=== PATIENT | female | born 1960 | race Caucasian/White ===

== ENCOUNTER → 2018-05-15 | Outpatient (CLI) | payer OTHER ==
[~2018-05-15] MED LIST: MICROGESTIN; TIMO5DRO17
--- NOTE | 2018-05-15 19:51 | Diagnostic Imaging Report ---
EXAMINATION: Digital mammogram bilateral screening with 3D tomosynthesis. The current study was also evaluated with a Computer Aided Detection (CAD) system. INDICATION: Screening. This study was compared to the prior exam of 08/12/2011. At this time, there are no current complaints. FINDINGS: The breasts are predominantly fatty. When compared to the previous study, there does not appear to have been any significant change. There are few small benign-appearing nodular densities in both breasts. There is no primary or secondary sign of malignancy noted. 3D tomographic images fail to show any sign of malignancy. IMPRESSION: 1. There is no evidence for malignancy. 2. The patient should have her annual bilateral screening mammogram on schedule in April 2019. ACR BI-RADS Category 1: Negative. Result letter will be mailed to the patient. Note: At least 10% of breast cancer is not imaged by mammography. Dictated by: Dictated on workstation # [id number]
== END ==
LOC: RAD 12:58
PROVIDERS: ATTEND Nurse Practitioner
DX: Z12.31 Encounter for screening mammogram for malignant neoplasm of breast (principal)
CPT/HCPCS: 77067

== ENCOUNTER → 2021-07-08 | Outpatient (CLI) | payer BC ==
--- NOTE | 2021-07-08 14:19 | Diagnostic Imaging Report ---
INDICATION: Routine screening. CORRELATION is made with prior mammogram 05/15/2018. 2-D and 3-D bilateral screening mammography was performed with CAD. Scattered fibroglandular densities are identified bilaterally. There are benign nodules in both breasts. No spiculated mass or malignant-appearing microcalcifications are seen. Axillae are unremarkable. IMPRESSION: BI-RADS Category 2. No mammographic features suspicious for malignancy are identified. ACR BI-RADS Category 2: Benign findings. Result letter will be mailed to the patient. Note: At least 10% of breast cancer is not imaged by mammography. Dictated by: Dictated on workstation # [id number]
== END ==
LOC: RAD 11:30
PROVIDERS: ATTEND Internal Medicine
DX: Z12.31 Encounter for screening mammogram for malignant neoplasm of breast (principal)
CPT/HCPCS: 77063; 77067

== ENCOUNTER 2023-01-18 05:35 | Outpatient (CLI) | payer BC ==
[~2023-01-18] VITALS: Ht 170.2 cm; Wt 101.6 kg
[2023-01-23] MEDS ORDERED: CETI10TA17 PO (11:31)
[2023-01-23] MEDS ORDERED: IBUP-1779 PO (11:31)
== END 2023-01-23 11:36 | disposition home or self-care (01) ==
LOC: PREOP 05:35
PROVIDERS: ATTEND Internal Medicine
DX: Z01.818 Encounter for other preprocedural examination (principal)

== ENCOUNTER 2023-01-27 08:54 | Day surgery (SDC) | payer BC ==
--- NOTE | 2023-01-14 04:36 | HISTORY AND PHYSICAL ---
COLONOSCOPY HISTORY AND PHYSICAL HISTORY OF PRESENT ILLNESS: The patient is a 62-year-old white female seen for yearly wellness evaluation. She had not previously accomplished screening colonoscopy after discussion about the rationale. This is being set up. She has had past history of obstructive sleep apnea for which she reports compliance on CPAP therapy. She is deemed to be of average risk because she is not aware of any family history for GI tract malignancy. She denies bright red blood per rectum or melena. SOCIAL HISTORY: She is , with adult children. Occasional social alcohol intake. A [id number] smoking history ongoing. PHYSICAL EXAMINATION: GENERAL: Reveals a white female, appeared to be in no acute distress. VITAL SIGNS: Weight was up 7.6 pounds at 224, blood pressure 138/82. HEENT: Unremarkable. CHEST: Clear. CARDIOVASCULAR: Reveals regular rate and rhythm without murmur, S3, or S4. ABDOMEN: Soft, supple without mass, organomegaly, or tenderness. SKIN: Revealed no suspicious nevi. EXTREMITIES: Revealed no cyanosis, clubbing or edema. ASSESSMENT AND PLAN: 1. Stable wellness evaluation. The patient in the precontemplative stage in regards to consideration for tobacco cessation, not ready to make any changes. When she returns, we will discuss screening PFTs. I am going to get this set up. 2. Obstructive sleep apnea, doing well on CPAP. Continue. 3. The patient is being set up for her first screening colonoscopy deemed to be of average risk. Prep instructions were given and questions were answered. She was also set up for screening mammography. Blood tests were discussed with the patient. She had a normal chemistry panel, and reasonable lipid parameters. Her HDL is a little low, likely due to tobaccoism of 41, but LDL was 107 with a total cholesterol 171 and triglyceride level of 114. Job ID: [id number] DocumentID: [id number] Dictated Date: 01/04/2023 16:57:28 Mask Inspector Date: 01/04/2023 17:08:00 Dictated By: BLADIMIR ALONSO MD
[~2023-01-27] VITALS: Ht 170 cm; Wt 101.6 kg
[~2023-01-27 08:54] MED LIST changes: +CETI10TA17 PO; +IBUP-1779 PO
[2023-01-27] MEDS ORDERED: LACTATED RINGERS 1,000 ML 1,000 ML IV ONE (08:56)
[2023-01-27] MEDS ORDERED: LACTATED RINGERS 1,000 ML 1,000 ML IV STA (09:04)
[2023-01-27 09:15] VITALS: BP 111/53
--- NOTE | 2023-01-27 09:27 | Pre-Op Note & Conscious Sedat ---
Pre-Operative Progress Note Date H&P Reviewed: Jan 27, 2023 Time H&P Reviewed: 09:26 History & Physical: H&P Reviewed, Patient Examed, No changes noted Pre-Op Diagnosis: screening Moderate Sedation PreProcedure ASA Score 3 Airway Lungs Heart ASA score ASA 1: a normal healthy patient ASA 2: a patient with a mild systemic disease (mid diabetes, controlled hypertension, obesity ASA 3: a patient with a severe systemic disease that limits activity (angina, COPD, prior Myocardial infarction) ASA 4: a patient with an incapacitating disease that is a constant threat to life (CHF, renal failure) ASA 5: a moribund patient not expected to survive 24 hrs. (ruptured aneurysm) ASA 6: a declared brain- patient whose organs are being harvested. For emergent operations, add the letter E after the classification Mallampati Classification Grade 3 Sedation Plan Analgesia, Amnesia, Plan communicated to team members, Discussed options with patient/fam, Discussed risks with patient/fam The patient is an appropriate candidate to undergo the planned procedure, sedation, and anesthesia. The patient immediately re-assessed prior to indication. BLADIMIR ALONSO MD Jan 27, 2023 09:27
--- NOTE | 2023-01-27 11:30 | Progress Note-Post Operative ---
Post-Procedure Note Physician (s)/Associate Vice President (s) Physician BLADIMIR ALONSO MD Pre-Procedure Diagnosis Pre-Procedure Diagnosis: screening Post-Procedure Diagnosis Post-operative diagnosis: Prior to undergoing colonoscopy digital rectal evaluation was performed. Anal suture tone was normal and the perianal reflexes intact. 1 grade 2 hemorrhoidal complex was noted nonthrombosed. No other abnormalities noted on digital evaluation of the anal canal or distal rectal vault. The colonoscope was then inserted into the rectum and under direct visualization advanced to the cecum. The cecum was identified by an indication of the ileocecal valve and cecal strap. Photographic documentation was obtained. Careful inspection was made as the colonoscope withdrawn. Quality prep was good. Sensitivity examination was decreased however due to the fact the patient who was a smoker and has sleep apnea was coughing throughout the procedure. Findings: 1 grade 2 internal hemorrhoid complex was noted with no other rectal abnormalities being appreciated. There was 1 hyperplastic appearing 3 mm sessile polyp noted at the rectosigmoid junction it was left as the patient was coughing and risk outweighed any benefit for polyp removal. Not present in the mid rectum was a 4 mm sessile polyp that was biopsied and ablated and submitted for histopathology. Similar polyps were noted in the distal sigmoid as well as cecum also biopsied and ablated with no blood loss. No other abnormalities are noted on colonoscopy to the cecum. Will await histopathology report before making surveillance colonoscopy but suspect likely 3-year interval if dysplasia is not noted. CC: Dr. Bladimir Alonso MD. BLADIMIR ALONSO MD Jan 27, 2023 11:30
[2023-01-27 11:33] VITALS: BP 126/60
[2023-01-27 11:45] VITALS: BP 124/57
[2023-01-27 11:57] VITALS: BP 124/57
--- NOTE | 2023-01-27 12:06 | Anesthesia-General Post-Op ---
MAC Patient Condition Mental Status/LOC: Same as Preop Cardiovascular: Satisfactory Nausea/Vomiting: Absent Respiratory: Satisfactory Pain: Controlled Complications: Absent Post Op Complications Complications None Follow Up Care/Instructions Patient Instructions None needed. Anesthesiology Discharge Order Discharge Order Patient is doing well, no complaints, stable vital signs, no apparent adverse anesthesia problems. No complications reported per nursing. MARCELO BOURGEOIS CRNA Jan 27, 2023 12:06
== END 2023-01-27 12:15 | disposition home or self-care (01) ==
LOC: ENDO 08:54
PROVIDERS: ATTEND Internal Medicine
DX: Z12.11 Encounter for screening for malignant neoplasm of colon (principal); D12.5 Benign neoplasm of sigmoid colon; K63.5 Polyp of colon; K64.1 Second degree hemorrhoids; E66.9 Obesity, unspecified; G47.33 Obstructive sleep apnea (adult) (pediatric); Z68.35 Body mass index [BMI] 35.0-35.9, adult; Z99.81 Dependence on supplemental oxygen
CPT/HCPCS: 88305